=== PATIENT | male | born 1985 | race Caucasian/White ===

== ENCOUNTER 2020-01-15 17:00 | Emergency (ER) | payer BC, SELFPAY ==
[2020-01-15 17:33] VITALS: BP 124/86; PULSE 86; RESP 14; TEMP 36.7; O2SAT 100; BMI 27.8
--- NOTE | 2020-01-15 17:40 | HMH.EDUTC ---
[facility] [place] Clinical Impression: Sore throat Otitis media Qualifiers: Otitis media type: unspecified Laterality: left Qualified Code(s): H66.92 - Otitis media, unspecified, left ear Disposition: Home, Self-Care Condition on Discharge: Good Instructions: Preventing the Spread of Coronavirus Discharge Instructions, Sore Throat Additional Instructions: *Monitor Temp, Over the counter Motrin or Tylenol as directed/as needed Tylenol every 4 hours and Motrin every 6 hours (as long as your family doctor has told you that you can take it) for fever or pain. and straight to ER if unable to lower temp less than 101.0 after medication given *Warm salt water gargles may help to soothe the throat *Throat Lozenges *Warm fluids like tea with honey may help to soothe the throat *Sleep elevated *Humidifier/Vaporizer *Flonase 2 sprays in each nostril daily but be aware that it may take 2-3 days before you notice improvement Your throat swab was sent for culture. Those results are typically sent to your primary care. Be sure to follow up in 2-3 days with your family doctor/primary care physician if no improvement so they can review those result and treat if necessary. If you don?t have a primary care doctor, I recommend you get one but in the mean time, you will have to return to a walk in clinic Follow up IMMEDIATELY for new or worsening symptoms or no Noticeable improvement over the next 48-72 hours. 911 for difficulty breathing or swallowing You was tested for today for COVID19 your test result should be back later this evening, you may call back later this evening to see if your test results are back and the result You was given a handout with instructions for Self Quarantine and Self isolation for while you wait on test results and what to do if they are positive Prescriptions: Fluticasone Propionate [Flonase 50mcg nasal spray 16gm] 1 - 2 spr NS DAILY #1 bottle Transmission Status: Pending to [facility] # Azithromycin [Z-Reg 250mg Tab] 250 mg PO DIRECTED #6 tab Transmission Status: Pending to [facility] # Referrals: Jackie Dacosta [Primary Care Provider] - As needed Forms: Work/School Release Time of Disposition: 17:45 Medical Decision Making - Angelito Inquiry Pt receiving controlled substance: No Angelito was queried for this patient: No Vital Signs: 01/15/20 17:33 Temperature 98.1 F Temperature Source Oral Pulse Rate [Right Brachial] 86 Respiratory Rate 14 Blood Pressure [Right Arm] 124/86 Blood Pressure Mean [Right Arm] 98 Blood Pressure Source [Right Arm] Automatic Cuff Blood Pressure Position [Right Arm] Sitting 02 Sat by Pulse Oximetry 100 Oxygen Delivery Method Room Air - Lab Data Lab results reviewed: Yes: I reviewed the patient's lab results. Orders (Tests/Meds): ORDERS Category Date Time Status Covid-19 Nasal PCR ([facility]) Routine Lab 01/15/20 17:22 Ordered [facility] [place] - General Stated complaint: sore throat,want Covid test Time Seen by Provider: 01/15/20 17:40 Mode of Arrival: Ambulatory Source of Information: Patient Limitations: No Limitations Description of Symptoms (Recalled from Triage Doc. by RN): PATIENT C/O SORE THROAT AND SINUS DRAINAGE. STATES A CO-WORKER RECENTLY TESTED POSITIVE FOR COVID HEENT Symptoms (Recalled from RN notes): Yes Resp Symptoms (Recalled from RN notes): No Skin Symptoms (Recalled from RN notes): No MS Symptoms (Recalled from RN notes): No Functional Status (Recalled from RN notes): WNL - History of Present Illness Provider Complaint: Patient states that he has been having sore throat and sinus drainage but coworker recently tested positive for COVID and mother of coworker babysits his children States that work put him off and wont leg him come back until he gets tested for COVID - Related Data Home Medications Medication Instructions Recorded Confirmed Venlafaxine HCl [Venlafaxine HCl 37.5 mg PO DAILY 01/15/20 10
[2020-01-15 17:58] VITALS: BP 124/86; PULSE 86; RESP 14; TEMP 36.7; O2SAT 100
[2020-01-15 21:17] LABS: UTC Strep Screen (Rapid) Negative (Negative)
== END 2020-01-15 18:00 | disposition home or self-care (01) ==
PROVIDERS: Emergency Provider Nurse Practitioner; PCP Family Medicine
DX: Z20.828 Contact with and (suspected) exposure to other viral communicable diseases (principal); H66.92 Otitis media, unspecified, left ear; Z88.0 Allergy status to penicillin
CPT/HCPCS: 87880; 99202; U0003

== ENCOUNTER 2020-12-09 08:59 | Emergency (ER) | payer BC, SELFPAY ==
[2020-12-09 09:00] VITALS: BP 159/95; PULSE 77; RESP 18; TEMP 36.9; O2SAT 98; BMI 29.4
--- NOTE | 2020-12-09 09:35 | HMH.EDUTC ---
[facility] [place]ression: Viral syndrome, Exposure to COVID-19 virus Disposition: Home, Self-Care Condition on Discharge: Good Instructions: DI for COVID-19 (Suspected or Confirmed ), Preventing the Spread of Coronavirus Discharge Instructions Additional Instructions: Don't start the azithromycin. Give this a couple of days to see how it goes first. Drink plenty of fluids. Take tylenol for pain or fever. Return if you begin to have difficulty breathing. Follow up with your regular doctor. GO TO THE ER FOR ANY WORSENING SYMPTOMS Quarantine until you know the results of your covid-19 test. If it is positive, the health department should call you and give you further instructions about your length of Quarantine and other things. Notify your school or workplace of your results and follow their instructions regarding return to work/school. Prescriptions: Brompheniramine/Pseudoephed/Dm [Bromfed Dm Cough Syrup] 5 ml PO Q6HP PRN #240 ml PRN Reason: Cough Transmission Status: Received by [facility] #[id number] Azithromycin [Z-Reg 250mg Tab*] 250 mg PO UD DOSE PK #6 tab Transmission Status: Received by [facility] #[id number] Referrals: Jackie Dacosta [Primary Care Provider] - Forms: Work/School Release Time of Disposition: 09:38 Medical Decision Making - Medical Records Medical records reviewed: No: I reviewed the patient's medical records. - Angelito Inquiry Pt receiving controlled substance: No Vital Signs: 12/09/20 09:00 12/09/20 09:43 Temperature 98.4 F 98.4 F Temperature Source Oral Pulse Rate 77 Pulse Rate [Right Brachial] 77 Respiratory Rate 18 18 Blood Pressure 159/95 H Blood Pressure [Right Arm] 159/95 H Blood Pressure Mean [Right Arm] 116 Blood Pressure Source [Right Arm] Automatic Cuff Blood Pressure Position [Right Arm] Sitting 02 Sat by Pulse Oximetry 98 Oxygen Delivery Method Room Air [facility] [place] - General Stated complaint: covid test/symptoms Time Seen by Provider: 12/09/20 09:35 Mode of Arrival: Ambulatory Source of Information: Patient Limitations: No Limitations Description of Symptoms (Recalled from Triage Doc. by RN): PATIENT C/O SINUS DRAINAGE AND HEADACHE SINCE SUNDAY NIGHT. REQUESTING COVID TEST HEENT Symptoms (Recalled from RN notes): Yes Resp Symptoms (Recalled from RN notes): No Skin Symptoms (Recalled from RN notes): No MS Symptoms (Recalled from RN notes): No Functional Status (Recalled from RN notes): WNL - History of Present Illness Provider Complaint: He has been having head ache, scratchy sore throat and sinus pressure for the past 2 days. He has been vaccinated for covid, but he would like to be checked. - Related Data Home Medications Medication Instructions Recorded Confirmed Venlafaxine HCl [Venlafaxine HCl 37.5 mg PO DAILY 01/15/20 01/15/20 ER] Previous Rx's Medication Instructions Recorded Azithromycin [Z-Reg 250mg Tab] 250 mg PO DIRECTED #6 tab 01/15/20 Fluticasone Propionate [Flonase 1 - 2 spr NS DAILY #1 bottle 01/15/20 50mcg nasal spray 16gm] Azithromycin [Z-Reg 250mg Tab*] 250 mg PO UD DOSE PK #6 tab 12/09/20 Brompheniramine/Pseudoephed/Dm 5 ml PO Q6HP PRN #240 ml 12/09/20 [Bromfed Dm Cough Syrup] Allergies Allergy/AdvReac Type Severity Reaction Status Date / Time Penicillins Allergy Verified 01/15/20 17:37 - Worker's Comp Is this a Worker's Comp case?: No [facility] History - Hepatitis A Screen Drug use history?: No High risk sexual behaviors?: No History of sexually transmitted infection?: No Currently employed?: No Childcare worker?: No Do you have indoor plumbing?: Yes Do you have electricity?: Yes Attestation statement:: This patient has been screened for Hepatitis A risk factors. I have reviewed the patient's past medical history: Yes Laterality Cases: Bilateral: Myringotomy (Ear Tubes) - Social History Alcohol Intake: never Occupational Status: other ROS O
[2020-12-09 09:43] VITALS: BP 159/95; PULSE 77; RESP 18; TEMP 36.9; O2SAT 98
== END 2020-12-09 09:49 | disposition home or self-care (01) ==
PROVIDERS: Emergency Provider Nurse Practitioner Family; PCP Family Medicine
DX: B34.9 Viral infection, unspecified (principal); Z20.822 Contact with and (suspected) exposure to COVID-19; Z88.0 Allergy status to penicillin
CPT/HCPCS: 99202; G0463; U0003

== ENCOUNTER 2022-01-25 15:38 | Emergency (ER) | payer BC, SELFPAY ==
[2022-01-25 15:39] VITALS: BP 129/89; PULSE 77; RESP 19; TEMP 36.7; O2SAT 99; BMI 24.6
[2022-01-25 16:00] LABS: UTC Strep Screen (Rapid) Negative (Negative)
--- NOTE | 2022-01-25 16:04 | EXP.UTC ---
Discharge Plan Disposition Patient Disposition: Home, Self-Care Condition: Good Prescriptions Prescriptions: New methylprednisolone [Medrol (Reg)] 4 mg tablets,dose pack See Rx Instructions .Route .COMPLEX 6 Days Qty: 21 0RF Rx Instructions: taper pack; cefdinir 300 mg capsule 300 mg PO BID Qty: 20 0RF No Action venlafaxine 37.5 MG capsule,extended release 24hr 37.5 mg PO DAILY azithromycin 250 MG tablet 250 mg PO DIRECTED Qty: 6 0RF Rx Instructions: Take two (2) tablets on day #1, then one (1) tablet day #2 thru #5 fluticasone propionate 120 SPR/BOT bottle 1 - 2 spr NS DAILY Qty: 1 0RF Rx Instructions: each nostril daily azithromycin 250 MG tablet 250 mg PO UD DOSE PK Qty: 6 0RF Rx Instructions: Take two (2) tablets today, then one (1) tablet days #2 thru #5 wauhayhlzggaeki-wjueuexmw-ZL 118 ML syrup 5 ml PO Q6HP PRN (Reason: Cough) Qty: 240 0RF Referrals Follow up/Referrals: Jackie Dacosta [Primary Care Provider] - See instructions Activity Restrictions/Add. Instructions Additional Instructions/Restrictions: *Monitor Temp, Over the counter Motrin or Tylenol as directed/as needed Tylenol every 4 hours and Motrin every 6 hours (as long as your family doctor has told you that you can take it) for fever or pain. and straight to ER if unable to lower temp less than 101.0 after medication given *Warm salt water gargles may help to soothe the throat *Throat Lozenges? *Warm fluids like tea with honey may help to soothe the throat? *Sleep elevated *Humidifier/Vaporizer Your throat swab was sent for culture. Those results are typically sent to your primary care. Be sure to follow up in 2-3 days with your family doctor/primary care physician if no improvement so they can review those result and treat if necessary. If you don?t have a primary care doctor, I recommend you get one but in the mean time, you will have to return to a walk in clinic Follow up IMMEDIATELY for new or worsening symptoms or no Noticeable improvement over the next 48-72 hours. 911 for difficulty breathing or swallowing Clinical Impressions Clinical Impression: URI (upper respiratory infection) Instructions Patient Instructions: Sore Throat Discharge ED Provider: Vesna Tobin [facility] HPI General Stated complaint: sore throat, congestion Mode of Arrival: Ambulatory Limitations: No Limitations Time Seen by Provider: 01/25/22 15:45 Description of Symptoms (Recalled from Triage Doc. by RN): SORE THROAT X 3 DAYS HEENT Symptoms (Recalled from RN notes): Yes Resp Symptoms (Recalled from RN notes): No Skin Symptoms (Recalled from RN notes): No MS Symptoms (Recalled from RN notes): No Functional Status (Recalled from RN notes): NA History of Present Illness Provider Complaint: Patient states that he has been having sore throat for about 3 days States that his son recently tested positive for strep throat and he thinks he may have it now too States that his throat is raw and irritated and can barely talk Related Data Home Medications Medication Instructions Recorded Confirmed venlafaxine 37.5 mg 37.5 mg PO DAILY Anxiety 01/15/20 01/15/20 capsule,extended release 24 hr Previous Rx's Medication Instructions Recorded azithromycin 250 mg tablet 250 mg PO DIRECTED #6 tabs 01/15/20 fluticasone propionate 50 1 - 2 spr NS DAILY ##1 01/15/20 mcg/actuation nasal spray,suspension azithromycin 250 mg tablet 250 mg PO UD DOSE PK #6 tabs 12/09/20 jaeztwefcfofvnb-biohhzyideyepyi-PA 5 ml PO Q6HP PRN Cough #240 mL 12/09/20 2 mg-30 mg-10 mg/5 mL oral syrup cefdinir 300 mg capsule 300 mg PO BID #20 caps 01/25/22 methylprednisolone 4 mg tablets in See Rx Instructions .Route 01/25/22 a dose pack (Medrol (Reg)) .COMPLEX 6 days #21 tabs Allergies Allergy/AdvReac Type Severity Reaction Status Date / Time Penicillins Allergy Verified 01/15/20 17:37 Wor
[2022-01-25 16:18] VITALS: BP 129/89; PULSE 77; RESP 19; TEMP 36.7; O2SAT 99
== END 2022-01-25 16:19 | disposition home or self-care (01) ==
PROVIDERS: Emergency Provider Nurse Practitioner; PCP Family Medicine
DX: J06.9 Acute upper respiratory infection, unspecified (principal)
CPT/HCPCS: 87880; 99212; G0463

== ENCOUNTER 2022-03-09 07:32 | Emergency (ER) | payer BC, SELFPAY ==
[2022-03-09 07:32] VITALS: BP 154/96; PULSE 83; RESP 18; TEMP 36.1; O2SAT 100; BMI 26.5
--- NOTE | 2022-03-09 07:39 | CT_ITS ---
FINAL REPORT TECHNIQUE: Axial images through the abdomen and pelvis were performed without contrast. This study was performed with techniques to keep radiation doses as low as reasonably achievable, (ALARA). Individualized dose reduction techniques using automated exposure control or adjustment of mA and/or kV according to the patient's size were employed. CLINICAL HISTORY: RLQ/Rt flank pain x 2 hours. Oliguria, nausea and vomiting. FINDINGS: Abdomen: The lung bases are clear. The liver parenchyma is homogeneous. The gallbladder is present. The spleen, pancreas, and adrenals are unremarkable. There are tiny nonobstructing stones in the right renal collecting system. There is moderate left hydronephrosis and hydroureter to the level of the UVJ. There is a 3 mm left UVJ stone. Pelvis: The urinary bladder is incompletely distended. The appendix is normal. There is no pelvic mass or inflammation. IMPRESSION: Obstructing 3 mm left UVJ stone. Nonobstructing right renal stones. Reviewed, Interpreted and Dictated by Phoenix Duncan MD Transcribed by Moshe Colin Authenticated and [facility]
[2022-03-09 07:49] LABS: Basophils # 0.1 K/mm3 (0-0.2); Basophils % 1.7 % (0.1-2.0); Eosinophils # 0.1 K/mm3 (0.0-0.4); Eosinophils % 1.9 % (0.1-12.0); Hematocrit 51.6 % (42.0-52.0); Hemoglobin 16.9 g/dL (14.1-18.0); Lymphocytes # 2.1 K/mm3 (0.7-4.5); Lymphocytes % 31.8 % (10-50); Mean Corpuscular HGB Conc 32.7 g/dL (31.8-35.4); Mean Corpuscular Hemoglobin 30.5 pg (27.0-31.2); Mean Platelet Volume 8.8 fl (7.4-10.4); Monocytes # 0.4 K/mm3 (0.1-1.0); Monocytes % 5.8 % (1.7-9.3); Neutrophils # 3.9 K/mm3 (1.8-7.8); Neutrophils % 58.9 % (37.0-80.0); Platelet Count 254 K/mm3 (142-424); Red Blood Count 5.55 M/mm3 (4.60-6.20); Red Cell Distribution Width 12.4 % (11.5-17.5); White Blood Count 6.6 K/mm3 (4.8-10.8)
[2022-03-09 08:00] LABS: Chloride 108 mmol/L (98-107); Potassium 3.8 mmoL/L (3.5-5.1); Sodium 142 mmol/L (136-145)
--- NOTE | 2022-03-09 08:00 | PC.NURSE ---
radiology notified of ct scan, pt updated on plan of care. at bedside. reports minimal relief from prior medication
[2022-03-09 08:03] LABS: Alanine Aminotransferase 19 U/L (12-78); Albumin Level 4.9 g/dl (3.5-5.0); Albumin/Globulin Ratio 1.6 (1.1-1.8); Alkaline Phosphatase 114 U/L (38-126); Anion Gap 14.8 mEq/L (5-15); Aspartate Amino Transferase 27 U/L (17-59); Bilirubin,Total 0.4 mg/dl (0.2-1.3); Blood Urea Nitrogen 13 mg/dl (9-20); Carbon Dioxide 23 mmol/L (22.0-30.0); Creatinine Clearance Estimated 91 mL/min (50-200); Estimated Glomerular Filt Rate 62 ml/min (>60); GFR (African American) 75 ML/MIN (>60); Globulin 3.1 g/dL (1.3-3.2)
[2022-03-09 08:04] LABS: Calcium 10.1 mg/dl (8.4-10.2); Glucose 118 mg/dl (74-100)
--- NOTE | 2022-03-09 08:05 | HMH.EDGENADL ---
Discharge Plan Disposition Patient Disposition: Home, Self-Care Condition: Good Chief Complaint: Abdominal Pain Prescriptions Prescriptions: No Action venlafaxine 37.5 MG capsule,extended release 24hr 37.5 mg PO DAILY azithromycin 250 MG tablet 250 mg PO DIRECTED Qty: 6 0RF Rx Instructions: Take two (2) tablets on day #1, then one (1) tablet day #2 thru #5 fluticasone propionate 120 SPR/BOT bottle 1 - 2 spr NS DAILY Qty: 1 0RF Rx Instructions: each nostril daily azithromycin 250 MG tablet 250 mg PO UD DOSE PK Qty: 6 0RF Rx Instructions: Take two (2) tablets today, then one (1) tablet days #2 thru #5 ituzprmdoucddwm-xnnxpvprw-HU 118 ML syrup 5 ml PO Q6HP PRN (Reason: Cough) Qty: 240 0RF methylprednisolone [Medrol (Reg)] 4 mg tablets,dose pack See Rx Instructions .Route .COMPLEX 6 Days Qty: 21 0RF Rx Instructions: taper pack; cefdinir 300 mg capsule 300 mg PO BID Qty: 20 0RF Referrals Follow up/Referrals: Jackie Dacosta [Primary Care Provider] - See instructions Thierry Lozano MD [Staff Physician] - See instructions Clinical Impressions Clinical Impression: Kidney stone Instructions Patient Instructions: DI for Kidney Stones, Kidney Stones -- Adult Discharge ED Provider: Carlos Khan General Adult HPI General Chief complaint: Abdominal Pain Stated complaint: Possible kidney stone, lower back/groin pain Time Seen by Provider: 03/09/22 08:04 Mode of Arrival: Ambulatory Source of Information: Patient Limitations: No Limitations Description of Symptoms (Recalled from ER Triage Doc. by RN): PT REPORTS WOKE UP IN PAIN. LEFT FLANK THAT RADIATES TO GROIN History of Present Illness HPI narrative: 36-year-old male, denies any significant chronic medical issues, presents with pain in the left flank now radiating into the groin area, started approximately 6 AM this morning sudden onset and severe in nature, had been waxing and waning and became more constant. Also reported some mild associated dysuria, denies any hematuria or odor noted. Did report associated nausea, denies fever, no prior abdominal surgical history. Denies any prior history of kidney stones, denies any testicular swelling or pain. Does not take any treatments thus far prior to this visit. Related Data Home Medications Medication Instructions Recorded Confirmed venlafaxine 37.5 mg 37.5 mg PO DAILY Anxiety 01/15/20 01/15/20 capsule,extended release 24 hr Previous Rx's Medication Instructions Recorded azithromycin 250 mg tablet 250 mg PO DIRECTED #6 tabs 01/15/20 fluticasone propionate 50 1 - 2 spr NS DAILY ##1 01/15/20 mcg/actuation nasal spray,suspension azithromycin 250 mg tablet 250 mg PO UD DOSE PK #6 tabs 12/09/20 wdvoowasprlndin-bksrsjphpuoqhkg-RI 5 ml PO Q6HP PRN Cough #240 mL 12/09/20 2 mg-30 mg-10 mg/5 mL oral syrup cefdinir 300 mg capsule 300 mg PO BID #20 caps 01/25/22 methylprednisolone 4 mg tablets in See Rx Instructions .Route 01/25/22 a dose pack (Medrol (Reg)) .COMPLEX 6 days #21 tabs Allergies Allergy/AdvReac Type Severity Reaction Status Date / Time Penicillins Allergy Verified 01/15/20 17:37 [facility] Disclaimer: The information contained in this section may have been updated after the patient was seen, as this information can be updated by other users. Social History Smoking Status: Never smoker alcohol intake: never current occupational status: other Travel in the last 8 weeks: None ROS Obtained: Yes Systems reviewed as appropriate & no additional complaints except as documented Constitutional Constitutional: Reports system reviewed and no additional complaints, except as documented Eyes Eyes: Reports system reviewed and no additional complaints, except as documented ENT Ears, Nose, Mouth, and Throat: Reports system reviewed and no additional complaints, except as
--- NOTE | 2022-03-09 08:07 | PC.NURSE ---
AT NURSES STATION REPORTS PT MORE COMFORTABLE AT THIS TIME
--- NOTE | 2022-03-09 08:08 | PC.NURSE ---
PT TO CT AT THIS TIME VIA WC
--- NOTE | 2022-03-09 08:15 | PC.NURSE ---
PT RETURNED FROM CT, JACOB MOSLEY
--- NOTE | 2022-03-09 08:18 | PC.NURSE ---
DR. ROACH AT BEDSIDE
--- NOTE | 2022-03-09 08:47 | PC.NURSE ---
PT TO BR TO ATTEMPT TO VOID FOR UA
--- NOTE | 2022-03-09 08:56 | PC.NURSE ---
STONE NOTED BY PT WITH UA, SENT TO LAB WELL
[2022-03-09 09:00] LABS: Microscopic, Urine URINE MICROSCOPIC (MICROSCOPIC)
[2022-03-09 09:03] LABS: Appearance,Urine SL CLOUDY (Clear); Bilirubin,Urine Negative (Negative); Blood, Urine 3+ (Negative); Color,Urine YELLOW (Yellow); Glucose,Urine (UA) Negative (Negative); Ketones,Urine Negative (Negative); Leukocyte Esterase,Urine Negative (Negative); Nitrate,Urine Negative (Negative); PH,Urine 7.5 (5.0-8.5); Protein,Urine 1+ (Negative); Specific Gravity, Urine 1.025 (1.005-1.030); Urobilinogen,Urine 0.2 EU/dl (0.2)
[2022-03-09 09:10] VITALS: BP 127/84; PULSE 80; RESP 17; TEMP 36.6; O2SAT 99
[2022-03-09 09:15] LABS: WBC,Urine Occasional #/hpf (0-3)
[2022-03-09 09:16] LABS: RBC,Urine 20-50 #/hpf (0-3)
== END 2022-03-09 09:15 | disposition home or self-care (01) ==
PROVIDERS: Emergency Medicine; Emergency Provider Emergency Medicine; PCP Family Medicine
DX: N20.0 Calculus of kidney (principal); Z79.899 Other long term (current) drug therapy; Z88.0 Allergy status to penicillin
CPT/HCPCS: 74176; 80053; 81001; 85025; 96365; 96375; 99284; J2405

== ENCOUNTER → 2022-05-19 10:05 | Outpatient (CLI) | payer BC, SELFPAY ==
[2022-05-19 10:20] LABS: MANUAL DIFFERENTIAL MANUAL DIFFERENTIAL (MANUAL DIFF); Microscopic, Urine URINE MICROSCOPIC (MICROSCOPIC)
[2022-05-19 11:34] LABS: Basophils % 0.4 % (0.1-2.0); Eosinophils # 0.1 K/mm3 (0.0-0.4); Eosinophils % 0.9 % (0.1-12.0); Hematocrit 48.3 % (42.0-52.0); Hemoglobin 16.6 g/dL (14.1-18.0); Lymphocytes # 1.4 K/mm3 (0.7-4.5); Lymphocytes % 24.2 % (10-50); Mean Corpuscular HGB Conc 34.4 g/dL (31.8-35.4); Mean Corpuscular Hemoglobin 30.7 pg (27.0-31.2); Mean Corpuscular Volume 89.3 fl (80-94); Mean Platelet Volume 7.7 fl (7.4-10.4); Monocytes # 0.4 K/mm3 (0.1-1.0); Monocytes % 7.2 % (1.7-9.3); Neutrophils % 67.2 % (37.0-80.0); Platelet Count 183 K/mm3 (142-424); Red Blood Count 5.41 M/mm3 (4.60-6.20); Red Cell Distribution Width 12.7 % (11.5-17.5); White Blood Count 5.9 K/mm3 (4.8-10.8)
[2022-05-19 11:35] LABS: Appearance,Urine CLEAR (Clear); Bilirubin,Urine Negative (Negative); Blood, Urine Negative (Negative); Color,Urine YELLOW (Yellow); Glucose,Urine (UA) Negative (Negative); Ketones,Urine Negative (Negative); Leukocyte Esterase,Urine Negative (Negative); Nitrate,Urine Negative (Negative); PH,Urine 6.5 (5.0-8.5); Protein,Urine Negative (Negative); Specific Gravity, Urine 1.025 (1.005-1.030); Urobilinogen,Urine 0.2 EU/dl (0.2)
--- NOTE | 2022-05-19 11:40 | CT_ITS ---
FINAL REPORT TECHNIQUE: TECHNIQUE: Axial images of the head were obtained with contrast. Coronal reformatted images were also obtained.This study was performed with techniques to keep radiation doses as low as reasonably achievable (ALARA). Individualized dose reduction techniques using automated exposure control or adjustment of mA and/or kV according to the patient's size were employed. CLINICAL HISTORY: dizziness, headache, bilateral tinnitus FINDINGS: CT HEAD WITHOUT CONTRAST There is no evidence of intracranial hemorrhage or mass. The ventricular size is within normal limits. There is no evidence of shift of the midline structures. No abnormal extra axial fluid collection is identified. No skull abnormality is seen on the bone window images. There is no abnormal contrast enhancement. IMPRESSION: No acute intracranial abnormality. Reviewed, Interpreted and Dictated by Phoenix Duncan MD Transcribed by Haritha Herbert Authenticated and [facility]
[2022-05-19 11:50] LABS: Bacteria,Urine Trace /lpf
[2022-05-19 12:15] LABS: Eosinophils % 1 % (0-3); Lymphocytes % 27 % (10-50); Monocytes % 4 % (2-9); Neutrophils % 68 % (42-76); Platelet Estimate Normal; RBC Morphology Normal; Total Cells Counted 100
[2022-05-19 12:23] LABS: Alanine Aminotransferase 14 U/L (12-78); Albumin Level 4.9 g/dl (3.5-5.0); Albumin/Globulin Ratio 1.8 (1.1-1.8); Alkaline Phosphatase 81 U/L (38-126); Aspartate Amino Transferase 23 U/L (17-59); Bilirubin,Total 0.6 mg/dl (0.2-1.3); Blood Urea Nitrogen 13 mg/dl (9-20); Calcium 9.5 mg/dl (8.4-10.2); Carbon Dioxide 28 mmol/L (22.0-30.0); Chloride 106 mmol/L (98-107); Chol/HDL Ratio 4.2 (1-3.5); Cholesterol 201 mg/dl (140-200); Estimated Glomerular Filt Rate 68 ml/min (>60); GFR (African American) 82 ML/MIN (>60); Globulin 2.8 g/dL (1.3-3.2); Glucose 83 mg/dl (74-100); HDL Cholesterol 48 mg/dl (40-60); Sodium 142 mmol/L (136-145); Total Protein,Serum 7.7 g/dl (6.3-8.2); Triglycerides 114 mg/dl (30-150); VLDL Cholesterol 23 mg/dL (0-40)
[2022-05-19 12:31] LABS: Anion Gap 12.1 mEq/L (5-15); Potassium 4.1 mmoL/L (3.5-5.1)
[2022-05-19 12:35] LABS: Direct LDL Cholesterol 122.01 mg/dL (100-129); Total Iron Binding Capacity 363 ug/dL (261-462)
[2022-05-19 12:54] LABS: Thyroid Stimulating Hormone 1.29 uIU/mL (0.465-4.68)
[2022-05-19 13:30] LABS: Vitamin B12 490 pg/mL (239-931)
[2022-05-19 13:33] LABS: Folate 5.63 ng/mL
[2022-05-19 17:41] LABS: Iron 100 ug/dL (49-181)
[2022-05-23 23:08] LABS: Antinuclear Antibodies (ANA) NEGATIVE
[2022-05-30 10:31] LABS: 1,25 Dihydroxy Vitamin D 48 pg/mL (.); 1,25-Dihydroxy, Vitamin D-2 <10 pg/mL (.); 1,25-Dihydroxy, Vitamin D-3 48 pg/mL (.)
== END ==
PROVIDERS: PCP Family Medicine; Visit Provider Family Medicine
DX: R42 Dizziness and giddiness (principal); R51.9 Headache, unspecified; I10 Essential (primary) hypertension; F41.9 Anxiety disorder, unspecified; H93.13 Tinnitus, bilateral; R53.83 Other fatigue
CPT/HCPCS: 36415; 70460; 80053; 80061; 81001; 82607; 82652; 82746; 83540; 83550; 84443; 85007; 85014; 85018; 85048; 85049; 86038; Q9967

== ENCOUNTER → 2022-06-08 16:49 | Outpatient (CLI) | payer BC, SELFPAY | PROVIDERS: PCP Family Medicine; Visit Provider Family Medicine | DX: G47.30 Sleep apnea, unspecified (principal); R06.83 Snoring; R42 Dizziness and giddiness; R53.83 Other fatigue | CPT/HCPCS: G0399 ==

== ENCOUNTER → 2022-09-25 14:35 | Outpatient (CLI) | payer BC, SELFPAY ==
[2022-10-04 00:07] LABS: Lyme B. burgdorferi PCR Blood Negative (Negative)
== END ==
PROVIDERS: PCP Nurse Practitioner Family; Visit Provider Nurse Practitioner Family
DX: I10 Essential (primary) hypertension (principal); H93.13 Tinnitus, bilateral; F41.8 Other specified anxiety disorders; W57.XXXA Bitten or stung by nonvenomous insect and other nonvenomous arthropods, initial encounter; Z86.19 Personal history of other infectious and parasitic diseases
CPT/HCPCS: 87476

== ENCOUNTER → 2023-01-01 15:04 | Outpatient (CLI) | payer BC, SELFPAY | PROVIDERS: PCP Nurse Practitioner Family; Visit Provider Internal Medicine | DX: I10 Essential (primary) hypertension (principal); R00.0 Tachycardia, unspecified; R42 Dizziness and giddiness; R53.1 Weakness; R53.83 Other fatigue; R60.0 Localized edema; Z87.891 Personal history of nicotine dependence | CPT/HCPCS: 93270 ==

== ENCOUNTER → 2023-01-04 07:54 | Outpatient (CLI) | payer BC, SELFPAY ==
[2023-01-04 08:13] LABS: Basophils % 0.6 % (0.1-2.0); Eosinophils # 0.1 K/mm3 (0.0-0.4); Eosinophils % 1.8 % (0.1-12.0); Hematocrit 49.9 % (42.0-52.0); Hemoglobin 16.9 g/dL (14.1-18.0); Lymphocytes % 28.3 % (10-50); Mean Corpuscular HGB Conc 33.9 g/dL (31.8-35.4); Mean Corpuscular Hemoglobin 29.5 pg (27.0-31.2); Mean Corpuscular Volume 86.9 fl (80-94); Mean Platelet Volume 8.6 fl (7.4-10.4); Monocytes # 0.5 K/mm3 (0.1-1.0); Neutrophils # 4.4 K/mm3 (1.8-7.8); Neutrophils % 62.3 % (37.0-80.0); Platelet Count 243 K/mm3 (142-424); Red Blood Count 5.74 M/mm3 (4.60-6.20); Red Cell Distribution Width 12.3 % (11.5-17.5)
[2023-01-04 09:03] LABS: Chloride 102 mmol/L (98-107); Sodium 141 mmol/L (136-145)
[2023-01-04 09:04] LABS: Potassium 4.1 mmoL/L (3.5-5.1)
[2023-01-04 09:06] LABS: Anion Gap 12.1 mEq/L (5-15); Blood Urea Nitrogen 16 mg/dl (9-20); Carbon Dioxide 31 mmol/L (22.0-30.0); Estimated Glomerular Filt Rate 56 ml/min (>60); GFR (African American) 68 ML/MIN (>60)
[2023-01-04 09:07] LABS: Calcium 9.7 mg/dl (8.4-10.2); Glucose 109 mg/dl (74-100)
[2023-01-04 09:26] LABS: Free T4 (Free Thyroxine) 1.22 ng/dl (0.78-2.19)
[2023-01-04 09:37] LABS: Thyroid Stimulating Hormone 1.36 uIU/mL (0.465-4.68)
[2023-01-05 11:46] LABS: Sodium, Urine 126 mmol/L (Not Estab.); Sodium, Urine 88 mmol/24 hr (58-337)
[2023-01-11 05:12] LABS: Metanephrine, U,24hr 70 ug/24 hr (58-276); Metanephrine, Ur 100 ug/L (Undefined); Normetanephr.,U,24h 193 ug/24 hr (156-729); Normetanephrine, Ur 275 ug/L (Undefined)
== END ==
PROVIDERS: PCP Nurse Practitioner Family; Visit Provider Internal Medicine
DX: R00.0 Tachycardia, unspecified (principal); R42 Dizziness and giddiness; I10 Essential (primary) hypertension; R53.1 Weakness; R53.83 Other fatigue; R60.0 Localized edema; Z87.891 Personal history of nicotine dependence
CPT/HCPCS: 36415; 80048; 82088; 82533; 83520; 83835; 84244; 84300; 84439; 84443; 85025

== ENCOUNTER → 2023-01-06 08:41 | Outpatient (CLI) | payer BC, SELFPAY ==
[2023-01-17 17:09] LABS: Dopamine, Ur, 24hr 161 ug/24 hr (0-510); Dopamine, Urine 63 ug/L (Undefined); Epinephrine, U, 24hr 8 ug/24 hr (0-20); Epinephrine, Urine 3 ug/L (Undefined); Norepinephrine, Ur 21 ug/L (Undefined); Norepinephrine,U,24h 54 ug/24 hr (0-135); VMA, Urine 1.5 mg/L (Undefined); VMA, Urine, 24hr 3.8 mg/24 hr (0.0-7.5)
== END ==
PROVIDERS: PCP Nurse Practitioner Family; Visit Provider Internal Medicine
DX: I10 Essential (primary) hypertension (principal); R00.0 Tachycardia, unspecified; R42 Dizziness and giddiness; R53.1 Weakness; R53.83 Other fatigue; R60.0 Localized edema; Z87.891 Personal history of nicotine dependence
CPT/HCPCS: 82384; 84585

== ENCOUNTER 2023-01-17 07:29 | Outpatient (CLI) | payer BC, SELFPAY ==
--- NOTE | 2023-01-17 07:30 | CT_ITS ---
APPROVED REPORT Transmission Tester: CLINICAL INDICATION Chest Pain TECHNIQUE Image Acquisition: A 128 slice MDCT scanner ([employer] View) was used for data acquisition. A noncontrast coronary calcium scan was performed. A CT attenuation threshold of 130 Hounsfield units (HU) was used for the detection of calcium in contiguous voxels of 1 sq mm in area to be counted as individual lesions. Bolus tracking in the ascending aorta with a threshold of 180 HU was performed. Immediately afterwards, ECG synchronized cardiac CT was then performed from the cardiac base to apex using retrospective gating with ECG tube current modulation. A total of 85 mL of Isovue 370 mg/mL contrast medium was administered at 5 mL/sec followed by a saline flush using a biphasic injection protocol. A tube voltage of 120 KVp was used. The patient received the following medications prior to the cardiac CT. 100 mg of oral metoprolol 5 mg of intravenous metoprolol. 0.8 mg of sublingual nitroglycerin. The average heart rate at the time of acquisition was 56 bpm and regular. Image Reconstruction Transaxial images were reconstructed at 0.67 mm slide thickness. Data was reviewed interactively on an advanced workstation capable of 2 and 3-dimensional displays in all conventional reconstruction formats, including multiplanar reformations, maximum intensity projections, curved multiplanar reformations, and volume rendered reconstructions. When applicable, selected routine images describing the relevant coronary anatomy and pathology were saved and sent to PACS. Complications None Technical Quality Overall image quality was good. Coronary artery opacification was adequate. Total DLP (Dose-Length Product) is 1668.1 mGy-cm. The reported value represents the total of one or more individual components during the CT acquisition of this date and at this time, and as such, the same value may appear in more than one CT report depending on the interpreting/reporting physicians. COMPARISON None FINDINGS CT Coronary Calcium Scoring LMA (Left Main Artery) = 0 LAD (Left Anterior Descending) = 5 LCX (Left Coronary Circumflex) = 0 RCA (Right Coronary Artery) = 0 Total Calcium Score = 5 using the AJ-130 method. The observed calcium score of 5 is < 25 percentile for subjects of the same age, sex, and race/ethnicity. The interpretation of the calcium heart score is based on the following continuum*: 0 = no calcified plaque detected (risk of coronary artery disease is very low ??? less than 5%) 1-10 = calcium detected in extremely minimal levels (risk of coronary diseases is still low ??? less than 10%) 11-100 = mild levels of plaque detected with certainty (mild or minimal narrowing of heart arteries is likely) 101-400 = definite,at least moderate levels of plaque detected (relatively high risk of a heart attack within 3-5 years) >401-999 = extensive levels of plaque detected (high risk of heart attack, high levels of vascular disease are present, high likelihood of at least one significant coronary narrowing) *The calcium heart score quantifies the burden of coronary calcification/plaque in the coronary arteries. The calcium heart score is not able to evaluate the presence or burden of non-calcified (i.e. soft) plaque. There is no identifiable calcification in the aortic valve, mitral annulus or mitral valve, pericardium, or myocardium. Coronary CT Angiography Coronaries have normal origin and proximal course. The coronary arterial system is right dominant. Note: Stenosis is reported as maximum percentage diameter stenosis. Stenosis grading is reported using the following scheme: Quantitative Stenosis Grading: Left Main (LM): The left main originates normally from the l
[2023-01-17 07:57] VITALS: BMI 25.7
[2023-01-17 08:40] VITALS: BP 116/82; PULSE 58; RESP 18; O2SAT 98
[2023-01-17 08:50] VITALS: BP 106/63; PULSE 70; RESP 18; O2SAT 98
[2023-01-17 08:58] VITALS: BP 103/49; PULSE 56; RESP 18; O2SAT 96
[2023-01-17 09:03] VITALS: BP 106/84; PULSE 68; RESP 17; TEMP 36.6; O2SAT 97
--- NOTE | 2023-01-17 09:05 | CA_ITS ---
APPROVED REPORT EXAM: Comprehensive 2D, Doppler, and color-flow Echocardiogram Exterior Interior Specialist: Franny Renae RT(R) Ht: 5 ft 10 in Wt: 181lbs BSA: 2.00 BP: 150/99 mmHg Indications: tachycardia, HTN, fatigue, edema, HTN, fatigue, weakness/fatigue, tick bite, pedal edema 2D Dimensions LVOT 2.07 cm (M/F) 1.5-2.5 LVEF (Us's) 54.20 % M: 52 - 72 LV Volume 100.10 mL M: 62 - 150 LV Volume Index 50.05 mL/m2 M: 34 - 74 LA Volume 34.50 mL LA Volume Index 17.25 mL/m2 (M/F) 16-34 M-Mode Dimensions RVDd 2.72 cm (0.9-2.6) LA Diam 3.48 cm (1.9-4.0) LVDd 4.61 cm (3.5-5.7) Ao Diam 3.12 cm (2.0-3.7) LVDs 3.40 cm (3.5-5.7) IVSd 1.25 cm (0.6-1.1) PWd 0.79 cm (0.6-1.1) EF (Teich) 51.50% FS 26.20% EDV (Teich) 97.80 mL ESV (Teich) 47.40 mL LV Diastology E Decel Time 263.00 (160-240 msec) E/A Ratio 1.46 MED E' 7.30 (< 7 cm/sec) E'/MED E' Ratio 9.11 (>14) LAT E' 9.20 (<10 cm/sec) E/LAT E' Ratio 7.23 (>14) Mitral Valve MV A Velocity 46.00 (40-130 cm/s) E/A Ratio 1.46 MV Decel. Time 263.00 (160-240 ms) Tricuspid Valve TR P. Velocity 153.00 cm/s RAP Estimate 10.00 mmHg RVSP 19.40 mmHg Left Ventricle The left ventricle is normal size. The left ventricular systolic function is normal. The left ventricular ejection fraction is within the normal range. There is increased LV wall thickness. There is normal LV segmental wall motion. The left ventricular diastolic function is normal. LVEF is 60%. Right Ventricle The right ventricle is normal size. The right ventricular systolic function is normal. Atria The left atrium size is normal. The right atrium size is normal. There is no Doppler evidence of interatrial shunt. Aortic Valve The aortic valve is trileaflet. The aortic valve opens well. There is no aortic valvular stenosis. No aortic regurgitation is present. Mitral Valve The mitral valve is normal in structure. No evidence of mitral valve stenosis. Trace mitral regurgitation. Tricuspid Valve The tricuspid valve leaflets are thin and pliable. Trace tricuspid regurgitation. RVSP is normal. Pulmonic Valve The pulmonary valve is normal in structure. Trace pulmonic regurgitation. Great Vessels The aortic root is normal in size. The ascending aorta is normal in size. IVC is normal in size and collapses >50% with inspiration. Pericardium There is no pericardial effusion. Other Information Study Quality: Adequate Conclusion Normal biventricular systolic function. No significant valvular stenosis or regurgitation. Electronically signed by : Alessandra Gale MD 01/19/2023 23:17:59
[2023-01-17 09:16] VITALS: BP 108/64; BP 119/81; PULSE 55; PULSE 61; RESP 16; TEMP 36.6; O2SAT 98
== END 2023-01-17 09:16 | disposition home or self-care (01) ==
PROVIDERS: PCP Nurse Practitioner Family; Visit Provider Internal Medicine
DX: R42 Dizziness and giddiness (principal); I10 Essential (primary) hypertension; R00.0 Tachycardia, unspecified; R53.1 Weakness; R53.83 Other fatigue; R60.0 Localized edema; Z87.891 Personal history of nicotine dependence
CPT/HCPCS: 75574; 93306; Q9967

== ENCOUNTER → 2023-02-28 13:16 | Outpatient (CLI) | payer BC, SELFPAY ==
[2023-02-28 14:06] LABS: Alanine Aminotransferase 15 U/L (12-78); Albumin Level 4.7 g/dl (3.5-5.0); Albumin/Globulin Ratio 1.6 (1.1-1.8); Alkaline Phosphatase 103 U/L (38-126); Anion Gap 12.7 mEq/L (5-15); Aspartate Amino Transferase 25 U/L (17-59); Bilirubin,Total 0.6 mg/dl (0.2-1.3); Blood Urea Nitrogen 12 mg/dl (9-20); Calcium 9.2 mg/dl (8.4-10.2); Carbon Dioxide 27 mmol/L (22.0-30.0); Chloride 102 mmol/L (98-107); Estimated Glomerular Filt Rate 61 ml/min (>60); GFR (African American) 74 ML/MIN (>60); Globulin 2.9 g/dL (1.3-3.2); Glucose 98 mg/dl (74-100); Potassium 3.7 mmoL/L (3.5-5.1); Sodium 138 mmol/L (136-145); Total Protein,Serum 7.6 g/dl (6.3-8.2)
[2023-03-01 08:17] LABS: Testosterone,Total 604 ng/dL (264-916)
== END ==
PROVIDERS: PCP Nurse Practitioner Family; Visit Provider Nurse Practitioner Family
DX: F41.1 Generalized anxiety disorder (principal); F41.8 Other specified anxiety disorders; R41.89 Other symptoms and signs involving cognitive functions and awareness; R42 Dizziness and giddiness; R53.83 Other fatigue; N17.9 Acute kidney failure, unspecified
CPT/HCPCS: 80053; 82306; 84403

== ENCOUNTER 2023-06-22 07:08 | Outpatient (CLI) | payer BC, SELFPAY ==
[2023-06-22 07:54] LABS: Basophils % 0.7 % (0.1-2.0); Eosinophils # 0.1 K/mm3 (0.0-0.4); Eosinophils % 1.9 % (0.1-12.0); Hematocrit 47.6 % (42.0-52.0); Lymphocytes # 1.7 K/mm3 (0.7-4.5); Lymphocytes % 27.8 % (10-50); Mean Corpuscular HGB Conc 33.7 g/dL (31.8-35.4); Mean Corpuscular Hemoglobin 31.2 pg (27.0-31.2); Mean Corpuscular Volume 92.7 fl (80-94); Mean Platelet Volume 8.3 fl (7.4-10.4); Monocytes # 0.5 K/mm3 (0.1-1.0); Neutrophils # 3.7 K/mm3 (1.8-7.8); Neutrophils % 60.6 % (37.0-80.0); Platelet Count 179 K/mm3 (142-424); Red Blood Count 5.14 M/mm3 (4.60-6.20)
[2023-06-22 08:11] LABS: Alanine Aminotransferase 19 U/L (12-78); Albumin Level 4.4 g/dl (3.5-5.0); Albumin/Globulin Ratio 1.8 (1.1-1.8); Alkaline Phosphatase 97 U/L (38-126); Anion Gap 12.7 mEq/L (5-15); Aspartate Amino Transferase 28 U/L (17-59); Bilirubin,Total 0.6 mg/dl (0.2-1.3); Blood Urea Nitrogen 15 mg/dl (9-20); Calcium 9.4 mg/dl (8.4-10.2); Carbon Dioxide 25 mmol/L (22.0-30.0); Chloride 106 mmol/L (98-107); Estimated Glomerular Filt Rate 67 ml/min (>60); GFR (African American) 82 ML/MIN (>60); Globulin 2.5 g/dL (1.3-3.2); Glucose 108 mg/dl (74-100); Potassium 3.7 mmoL/L (3.5-5.1); Sodium 140 mmol/L (136-145); Total Protein,Serum 6.9 g/dl (6.3-8.2)
[2023-06-22 08:40] LABS: Thyroid Stimulating Hormone 1.81 uIU/mL (0.465-4.68)
[2023-06-22 09:16] LABS: Vitamin B12 424 pg/mL (239-931)
[2023-06-22 09:23] LABS: Folate 4.82 ng/mL
[2023-06-29 14:59] LABS: Narcolepsy DQA1*01:02 Negative (.); Narcolepsy DQB1*06:02 Negative (.)
== END 2023-06-22 23:59 ==
LOC: LAB 07:09
PROVIDERS: PCP Nurse Practitioner Family; Visit Provider Specialist
DX: R41.89 Other symptoms and signs involving cognitive functions and awareness (principal); I10 Essential (primary) hypertension; R53.83 Other fatigue; G47.429 Narcolepsy in conditions classified elsewhere without cataplexy; G47.10 Hypersomnia, unspecified; G47.30 Sleep apnea, unspecified; R06.83 Snoring
CPT/HCPCS: 36415; 80053; 81383; 82607; 82746; 84443; 85025

== ENCOUNTER 2023-08-23 16:12 | Outpatient (CLI) | payer BC, SELFPAY | END 2023-08-23 23:59 | disposition home or self-care (01) | LOC: LAB 16:13 | PROVIDERS: PCP Nurse Practitioner Family; Visit Provider Specialist | DX: F41.1 Generalized anxiety disorder (principal); F41.8 Other specified anxiety disorders; Z51.81 Encounter for therapeutic drug level monitoring | CPT/HCPCS: 36415; 80168 ==

== ENCOUNTER 2023-08-29 08:19 | Day surgery (SDC) | payer BC, SELFPAY ==
[2023-08-29 08:46] VITALS: BP 140/87; PULSE 84; RESP 18; TEMP 36.7; O2SAT 99; BMI 25.5
--- NOTE | 2023-08-29 10:44 | EXP.TILT ---
Findings:: PROCEDURE: Tilt Table Test REQUESTING PROVIDER: Magalys Richards MD INDICATION: Prolonged history of dizziness, brain fog, fatigue. BETA BLOCKERS: None PRE-TEST VITAL SIGNS (supine): HR 67 bpm and sinus rhythm, BP 129/76, O2 Sats 100%. PROCEDURE SUMMARY: Patient was prepped per protocol, IV started, connected to heart, blood pressure and oxygen saturation monitors and safety straps applied. He was then tilted upright to 70 degrees for a total of 30 minutes. Within 5 minutes of being placed upright he complained of his legs feeling shaky, which persisted for most of the test. He also complained of increased dizziness (compared to baseline) after being placed upright and this also persisted for the duration of the test. His heart rate increased from 67 bpm supine to 101 bpm upon being raised to the upright position. It continued to increase as he remained upright, peaking at 133 bpm after 25 minutes. His heart rate quickly slowed to 77 bpm after being returned to the supine position after test completion. He remained in sinus rhythm throughout the test. His diastolic blood pressure increased to 94 mmHg after being raised upright (from 76 mmHg supine) while his systolic stayed relatively unchanged at 123 mmHg (compared to 129 mmHg supine). While upright, his highest systolic pressure was 141 mmHg and lowest was 123. His highest diastolic pressure was 98 and lowest was 88. His oxygen saturation was 99-100% throughout. CONCLUSIONS: Heart rate increased 66 bpm from the supine to the upright position and was accompanied by symptoms. This far surpasses the minimum criteria (30 bpm) for a diagnosis of postural orthostatic tachycardia syndrome (POTS). A trial of beta-blockers or ivabradine would be warranted.
== END 2023-08-29 10:20 | disposition home or self-care (01) ==
PROVIDERS: PCP Nurse Practitioner Family; Visit Provider Specialist
DX: R42 Dizziness and giddiness (principal)

== ENCOUNTER 2023-12-27 15:00 | Outpatient (RCR) | payer BC, SELFPAY ==
--- NOTE | 2023-12-12 16:32 | HMH.PTOPEV ---
PT Outpatient Evaluation Rehab PT Outpatient Evaluation Start: 12/12/23 15:07 Freq: Status: Active Protocol: Document 12/12/23 16:05 PHORNE (Rec: 12/12/23 16:32 PHORNE [id number]) E-signed By Cheng Ross, PT Outpatient Therapy Subjective History Subjective History This is the initial PT eval for Phuc Herbert, 38 yowm who presents with c/o decreased balance, increased dizziness, brain fog, blurry vision x ~ 6 yrs. He reports no known specific cause of his symptoms despite being seen by ENT, 2 neurologists, and cardiology. He has constant symptoms which are more intense some days than other, but never completely gone. He reports hx of multiple factors that could cause his symptoms including, but not limited to: hx of multiple concussions, hx of multiple severe ear infections as a child, 2-3 instances of whiplash, B inner ear reconstruction. He reports double vision in his right eye, but corrective lenses make him feel more off balance and nauseated. He was recently diagnosed with POTS after tilt-table test and has hx of anxiety. Pt reports he thinks his symptoms are related to PPPD. New diagnosis of cancer in past 12 No months? Chief Complaint Other Balance Eval Nystagmus Nystagmus Presence None Dynamic Gait Index Test Protocol Gait Level Surface Normal Query Text: Instructions: Walk at your normal speed from here to the next uday (20'). Grading: Uday the lowest category that applies. Change in Gait Speed Normal Query Text: Instructions: Begin walking at your normal pace (for 5'), when I tell you go , walk as fast as you can (for 5'). When I tell you slow , walk as slowly as you can (for 5'). Grading: Uday the lowest category that applies. Gait with Horizontal Head Turns Mild Impairment Query Text: Instructions: Begin walking at your normal pace. When I tell you to look right , keep walking straight, but turn you head to the right. Keep looking to the right unit I tell you look left , then keep walking straight and turn your head to the left. Keep your head to the left until I tell you look straight , then keep walking straight, but return you head to the center. Grading: Uday the lowest category that applies. Gait with Vertical Head Turns Mild Impairment Query Text: Instructions: Begin walking at your normal pace. When I tell you to look up , keep walking staight, but tip your head up. Keep looking up until I tell you to look down , then keep walking straight and tip your head down. Keep your head down until I tell you look straight , then keep walking straight, but return your head to the center. Grading: Uday the lowest category that applies. Gait and Pivot Turn Normal Query Text: Instructions: Begin walking at your normal pace. When I tell you turn and stop , turn as quickly as you can to face the opposite direction and stop. Grading: Uday the lowest category that applies. Step Over Obstacle Mild Impairment Query Text: Instructions: Begin walking at your normal speed. When you come to the shoebox, step over it, not around it and keep walking. Grading: Uday the lowest category that applies. Step Around Obstacles Normal Query Text: Instructions: Begin walking at normal speed. When you come to the first cone (about 6' away), walk around the right side of it. When you come to the second cone (6' past first cone), walk around it to the left. Grading: Uday the lowest category that applies. Steps Mild Impairment Query Text: Instructions: Walk up these stairs as you would at home. At the top, turn around and walk down. Grading: Uday the lowest category that applies. Scoring Dynamic Gait Index Score 20 Miscellaneous Dx PT Eval Objective Objective Occulomotor testing shows worsening symptoms with Dynamic Visual Acuity test, Head-Impulse test, and Cross- Cover pursuit test. R side is more symptomatic than left with all occulomotor tests. Outpatient Therapy Assessment Impairments Problems/Impairmments Impaired Balance,Impaired Self Care/Self Management Prognosis Rehab Potential Good Comment Skilled therapy is indicate to reduce pt instances of balance disruption and improve balance to return pt to PLOF. Clinical Impression Consistent with Diagnosis No Consistent with More likely UVH than POTS Short Term Goals Number of Weeks 2 Increase DGI Score Yes: Improve Self Care/Self Management Yes: Moderate dizziness with rapid eye movements Patient to be Ind w/ HEP Yes Fpc Goals Number of Weeks 4 Increase DGI Score Yes: Improve Self Care/Self Management Yes: Minimal dizziness with rapid eye movements Patient to be Ind w/ Advanced HEP Yes Outpatient Therapy Plan of Care Treatment Plan May Include Therapeutic Exercise Including Home Yes Exercise Program Manual Therapy Techniques Yes Therapeutic Activities to Return to Yes Previous Functional/Work Level Gait Training Yes ADL/Self Care Education Yes Eval/Re-Eval Yes Frequency Times per week 2 Duration Number of Weeks 4 Addendums This patient is a candidate for social No or vocational rehab? Patient/Guardian verbally acknowledges Yes understanding of treatment program and consents to further treatment? Patient/Guardian verbally acknowledges Yes understanding of diagnosis, prognosis and goals for treatment? Eval Complexity PT Charges 21763 - High Complexity Shoulder/Elbow Eval Shoulder Objective Measurements Elbow Objective Measurements PHYSICIAN CERTIFICATION: I certify the specified therapy services for Phuc Herbert are required, authorized, and reviewed every 30 days.
== END 2023-12-27 15:05 | disposition home or self-care (01) ==
LOC: PT 15:00
PROVIDERS: Visit Provider Specialist
DX: R42 Dizziness and giddiness (principal); G90.A Postural orthostatic tachycardia syndrome [POTS]
CPT/HCPCS: 97112; 97163

== ENCOUNTER 2024-01-17 16:02 | Outpatient (CLI) | payer BC, SELFPAY ==
--- NOTE | 2024-01-17 16:03 | MR_ITS ---
FINAL REPORT CLINICAL HISTORY: Headache, whiplash, chronic neck pain FINDINGS: Multiplanar MR imaging of the cervical spine was performed without contrast. There is motion on many of the images which decreases the sensitivity of the exam. On the sagittal T2-weighted images, disc degeneration is seen at multiple levels. There is no evidence of fracture. There is straightening of the normal cervical curvature which could be due to positioning or muscle spasm. The cervical spinal cord has an unremarkable appearance without evidence of mass, edema or syrinx. No significant canal stenosis is identified. The cervicomedullary junction is normal. C2-3: There is no significant canal stenosis or neural foraminal narrowing. C3-4: There is small uncovertebral osteophytes. There is mild left neuroforaminal narrowing. C4-5: There is no significant canal stenosis or neural foraminal narrowing. C5-6: There is a small disc osteophyte complex with mild bilateral neuroforaminal narrowing. C6-7: There is a small disc osteophyte complex with mild bilateral neuroforaminal narrowing. C7-T1: There is no significant canal stenosis or neural foraminal narrowing. IMPRESSION: Multilevel degenerative disc disease. Straightening of the normal cervical curvature which could be due to positioning or muscle spasm. Reviewed, Interpreted and Dictated by Matti Modi III, MD Transcribed by Luba Chatman Authenticated and [facility]
== END 2024-01-17 23:59 | disposition home or self-care (01) ==
LOC: RAD 16:03
PROVIDERS: PCP Nurse Practitioner Family; Visit Provider Nurse Practitioner Family
DX: R26.89 Other abnormalities of gait and mobility (principal); G90.A Postural orthostatic tachycardia syndrome [POTS]; R42 Dizziness and giddiness; H93.13 Tinnitus, bilateral
CPT/HCPCS: 72141

== ENCOUNTER 2024-01-31 14:01 | Outpatient (POV) | payer BC, SELFPAY ==
[2024-01-31 14:53] VITALS: BP 143/88; PULSE 81; RESP 18; O2SAT 99; BMI 26.4
--- NOTE | 2024-01-31 15:07 | A.OFFVIS_ITS ---
HPI Data of Consult Patient: new to practice Consult date: 01/31/24 Requesting Physician: Shantell Durbin APRN Primary Care Provider: Anni Clark APRN Consult Narrative Reason for consult: Neck pain, bilateral arm hand numbness tingling, headache, blurred vision, History of present illness: Mr. Herbert is a 38 year old male who presents today as a new patient. He is a referral from Mary Clark's office. Today he rates his pain a 0 out of 10 currently however does state that the pain and symptoms will hit all of a sudden going to at least a 5 out of 10 if not more. He states that the symptoms are very offputting and do affect his ability to perform activities of daily living such as cooking and cleaning or even simple ambulation. Patient states this has been going on for months and progressively worsening. Patient states he constantly feels off balance with frequent headaches and blurred vision. Joy ent states he ended up seeing a ENT specialist Dr. Mercedes who diagnosed him with vestibular delay. Patient states he then went to a neurologist there in [place] who did imaging of his brain and said there were no acute findings. He also did an EEG and spinal tap with no acute findings. Patient states that she did not have any suggestions of what to do and then he ended up being referred here to Dr. Richards. Patient states that he has gone to a clearing inspector to check his vision and that they did mention astigmatism in his right eye however stated that his vision overall was a 2020. He states that he can see but it takes time to focus he states that he did even try glasses for a full day and it made no additional improvement. Patient states that he has severe brain fog and that he has tried everything including oral medication, heat and ice, topicals, pillows for positioning, at home exercising and stretching for longer than 12 weeks. Patient states he feels like he is living in a dream . Patient states they just cannot figure out what is going on and that his mother stated she had similar symptoms and ended up getting a cervical injection and that it did significantly improve his symptoms. Patient does state that he is open to trying anything to get improvement. Patient does state that he did even see a TikTok that mentioned a certain type of issue and that he feels like that he has very similar symptoms. Patient is not on any scheduled medications. His Angelito has been reviewed and is appropriate. CC: Shantell Durbin APRN [facility] Disclaimer: The information contained in this section may have been updated after the patient was seen, as this information can be updated by other users. 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 Sinus tachycardia Tick bite Generalized anxiety disorder Depression with anxiety HTN (hypertension) Kidney stone Surgical History S/P middle ear reconstruction History of vocal cord polypectomy H/O vasectomy History of placement of ear tubes Family History Father No significant family history Mother Hypertension Hyperlipidemia Brother Hypertension Other Anxiety Coronary artery disease Depression Diabetes Stroke Social History Smoking Status: Former smoker second hand exposure: No alcohol intake: current alcohol intake frequency: holidays/special occasions only counseling given: No substance use type: denies use counseling given: No current occupational status: employed Travel in the last 8 weeks: None adopted: No caregiver/support person: No foster care: No household members: spouse housing: house lives independently: Yes marital status: number of children: 2 Hx Recent Travel: No sexually active: Yes working smoke detector in home: Yes fire extinguisher in home: Yes carbon monox detector in home: No firearms in home: Yes firearms unloaded and locked: Yes do you feel safe at home: Yes victim of physical abuse: No victim of emotional abuse: No victim of sexual abuse: No would you like helpful sources: No Review of Systems Review of Systems Review of systems:: pertinent systems reviewed and negative unless documented below Review of systems (narrative): Review of Systems: General: No recent weight changes, no fever, no sleep disturbances Respiratory: No cough, no shortness of air, no recurring pulmonary infections Cardiovascular/peripheral vascular: No chest pain, no palpitations, no edema, no shortness of breath Gastrointestinal: No new onset incontinence, normal bowel movements reported Genitourinary: No new onset incontinence Musculoskeletal: Neck pain, bilateral arm, and numbness tingling, blurred vision, headaches, off-balance sensation Psychiatric: [Normal mood/affect] Neurological: [Denies weakness in extremities], [denies balance issues] Meds Home Medications and Allergies Home Medications ?Medication ?Instructions ?Recorded ?Confirmed ?Type propranolol 20 mg tablet 20 mg PO BID #180 tabs 09/11/23 01/31/24 Rx sodium chloride 1,000 mg soluble 1,000 mg PO DAILY #90 tabs 09/11/23 01/31/24 Rx tablet buspirone 5 mg tablet 5 mg PO BID 01/03/24 01/31/24 History desvenlafaxine succinate 50 mg 50 mg PO DAILY 01/03/24 01/31/24 History tablet,extended release 24 hr hydroxyzine HCl 10 mg tablet 10 mg PO TID PRN Anxiety 01/03/24 01/31/24 History New Prescriptions to Start Prescriptions: Allergies Allergy/AdvReac Type Severity Reaction Status Date / Time Penicillins Allergy Verified 01/03/24 15:35 Objective Vital signs: Pulse Resp BP Pulse Ox O2 Del Method 81 18 143/88 H 99 Room Air 01/31/24 14:53 01/31/24 14:53 01/31/24 14:53 01/31/24 14:53 01/31/24 14:53 Narrative: Physical Exam: General: Alert and oriented x3, no acute distress, pleasant and cooperative Lungs: Respirations even and unlabored, symmetrical chest expansion Eyes: PERRL Musculoskeletal: Flexion and extension of cervical [spine] somewhat guarded secondary to pain, positive Spurling's test Neurological: Speech clear, no gross sensory deficit Additional findings Additional findings: FINDINGS: Multiplanar MR imaging of the cervical spine was performed without contrast. There is motion on many of the images which decreases the sensitivity of the exam. On the sagittal T2-weighted images, disc degeneration is seen at multiple levels. There is no evidence of fracture. There is straightening of the normal cervical curvature which could be due to positioning or muscle spasm. The cervical spinal cord has an unremarkable appearance without evidence of mass, edema or syrinx. No significant canal stenosis is identified. The cervicomedullary junction is normal. C2-3: There is no significant canal stenosis or neural foraminal narrowing. C3-4: There is small uncovertebral osteophytes. There is mild left neuroforaminal narrowing. C4-5: There is no significant canal stenosis or neural foraminal narrowing. C5-6: There is a small disc osteophyte complex with mild bilateral neuroforaminal narrowing. C6-7: There is a small disc osteophyte complex with mild bilateral neuroforaminal narrowing. C7-T1: There is no significant canal stenosis or neural foraminal narrowing. IMPRESSION: Multilevel degenerative disc disease. Straightening of the normal cervical curvature which could be due to positioning or muscle spasm. Reviewed, Interpreted and Dictated by Matti Modi III, MD Transcribed by Luba Chatman Authenticated and [facility] Assessment and Plan *Assessment and plan (1) Degenerative disc disease, cervical: Status: Acute Category: Medical Code(s): M50.30 - Other cervical disc degeneration, unspecified cervical region (2) Cervical radiculopathy: Status: Acute Category: Medical Code(s): M54.12 - Radiculopathy, cervical region (3) Headache: Status: Acute Category: Medical Code(s): R51.9 - Headache, unspecified (4) POTS (postural orthostatic tachycardia syndrome): Problem Comment: Baseline BP 127/74 HR 80 -----100/54 HR >100. Orthostatic hypotension tachycardia have improved but he still feels dizzy. Status: Suspected Category: Medical Code(s): G90.A - Postural orthostatic tachycardia syndrome [POTS] (5) Dizziness: Problem Comment: Can not exclude POTS Status: Chronic Category: Medical Code(s): R42 - Dizziness and giddiness Plan Patient has been experiencing significant issues including neck pain with numbness and tingling into his arms and fingertips for several months along with concerning symptoms of blurred vision, dizziness and general off-balance sensations. Patient was counseled that we can try cervical epidural steroid injection. Patient did have degenerative disc disease with mild bilateral neuroforaminal narrowing at the C5-C6 C6-C7 levels. I have discussed that I would recommend we try the C5-C6 level. Risk and benefits were discussed with the patient and he would like to proceed forward with this plan of care. Patient has tried and failed conservative treatment including continued at home stretching exercise for longer than 12 weeks. Patient will be scheduled for a JAVIER C5-C6 under fluoroscopy. Patient has been instructed to contact the clinic with any concerns before the next appointment. Dr. Batista has reviewed this note and agrees with this plan of care. This note was dictated using voice recognition software and make contain errors or omissions. All injections are used with Lidocaine or Bupivacaine and Depo Medrol.
== END 2024-01-31 23:59 | disposition home or self-care (01) ==
LOC: SC.PAIN 14:02
PROVIDERS: PCP Nurse Practitioner Family; Visit Provider Nurse Practitioner Family
DX: M50.10 Cervical disc disorder with radiculopathy, unspecified cervical region (principal); R51.9 Headache, unspecified; G90.A Postural orthostatic tachycardia syndrome [POTS]; R42 Dizziness and giddiness; Z73.89 Other problems related to life management difficulty; Z87.891 Personal history of nicotine dependence
CPT/HCPCS: 99202; G0463

== ENCOUNTER 2024-02-19 08:53 | Day surgery (SDC) | payer BC, SELFPAY ==
[2024-02-19 09:07] VITALS: BP 129/84; PULSE 66; RESP 16; TEMP 36.6; O2SAT 100; BMI 27.2
[2024-02-19 09:32] VITALS: BP 138/83; PULSE 75; RESP 18; O2SAT 96
[2024-02-19] MEDS: methylPREDNISolone ACETATE 80MG/ML VIAL 80 MG (09:32)
[2024-02-19 09:33] VITALS: BP 138/83; PULSE 69; RESP 18; O2SAT 96
[2024-02-19 09:37] VITALS: BP 123/80; PULSE 68; RESP 16; O2SAT 100
--- NOTE | 2024-02-19 09:42 | P.PCN_ITS ---
Procedure Date: 02/19/24 Time: 09:30 Anesthesiologist:: Rashawn Malik CRNA Complications:: None Pre-procedure Diagnosis:: Degenerative disc cervical spine multilevels. Cervical radiculopathy Post-procedure Diagnosis:: Same. Indications for Procedure:: Patient is a pleasant 38-year-old male who comes our clinic today for cervical epidural steroid injection. Patient describes cervical neck pain as constant, dull, aching. Also bilateral shoulder radicular symptoms. Also, reports headac hes often. He rates his pain 7/10. Procedure Details:: Procedure:Cervical epidural steroid injection Informed consent was obtained and the risks and benefits of the procedure were explained to the patient. The patient was taken to the procedure room and noninvasive monitors placed, including noninvasive blood pressure cuff and pulse oximeter. The neck was prepped using Chloraprep as a cleansing solution. The C6- C7 interspace was viewed using fluroscopy. The skin and subcutaneous tissues were anesthetized using lidocaine 1.5% and a 25-gauge needle. After this an 18- gauge Touhy epidural needle was placed into the C6-C7 interspace under fluroscopy guidance and advanced using loss of resistance to air until the epidural space was encountered. After confirmation of needle placement in the epidural space using contrast dye, a solution containing normal saline, 2 mL and Depo-Medrol 80 mg was incrementally injected into the cervical epidural space.~ The patient tolerated the procedure well with no complications. The patient was observed in the Pain Clinic and then discharged home neurologically intact. Plan and Disposition:: Patient was discharged without incident.
== END 2024-02-19 09:37 | disposition home or self-care (01) ==
LOC: SC.PAINP 08:53
PROVIDERS: PCP Nurse Practitioner Family; Visit Provider Nurse Anesthetist, Certified Registered
DX: M50.30 Other cervical disc degeneration, unspecified cervical region (principal); M54.12 Radiculopathy, cervical region
CPT/HCPCS: 62321; J1010

== ENCOUNTER 2024-02-21 17:56 | Emergency (ER) | payer BC, SELFPAY ==
[2024-02-21 18:23] VITALS: BP 128/89; PULSE 91; RESP 18; TEMP 36.8; O2SAT 98; BMI 26.4
--- NOTE | 2024-02-21 18:39 | EXP.UTC ---
Discharge Plan Disposition Patient Disposition: Home, Self-Care Prescriptions Prescriptions: New valacyclovir 1 gram tablet 1,000 mg PO Q8H 7 Days Qty: 21 0RF No Action desvenlafaxine succinate 50 mg tablet extended release 24 hr 50 mg PO DAILY Patient Comments: TAKE 1 TABLET BY MOUTH ONCE DAILY buspirone 5 mg tablet 5 mg PO BID Patient Comments: TAKE 1 TABLET BY MOUTH TWICE DAILY propranolol 20 mg tablet 20 mg PO BID Qty: 180 3RF Referrals Follow up/Referrals: Anni Clark APRN [Primary Care Provider] - See instructions Activity Restrictions/Add. Instructions Additional Instructions/Restrictions: Take medication as prescribed Take your medicines exactly as prescribed. Antiviral medicine helps you get better faster and may help prevent later problems. Try not to scratch or pick at the blisters.Keep the blisters moist until they heal over. One way to do this is to cover them with a thin layer of petroleum jelly, such as Vaseline, and a non-stick bandage. Take an [id number] pain medicine, such as acetaminophen (Tylenol), ibuprofen (Advil, Motrin), or naproxen (Aleve). .Avoid close contact with people until the blisters have healed. It is very important for you to avoid contact with anyone who has never had chickenpox or the chickenpox vaccine. Young babies and anyone who is or has a hard time fighting infection (such as someone with HIV, diabetes, or cancer) are especially at risk. To relieve itching and discomfort, try: A cool, wet compresses on the affected skin.?Soothing baths and lotions, such as colloidal oatmeal bath, starch baths, or calamine lotion Clinical Impressions Clinical Impression: Shingles Stand Alone Forms Stand Alone Forms: Work/School Release Instructions Patient Instructions: DI for Shingles, Valacyclovir Print Language Print Language: Greenlandic Discharge ED Provider: Vesna Tobin [facility] General Stated complaint: Blisters on back Mode of Arrival: Ambulatory Source of Information: Patient Time Seen by Provider: 02/21/24 18:39 Description of Symptoms (Recalled from Triage Doc. by RN): BLISTERS ON BACK AND LEGS HEENT Symptoms (Recalled from RN notes): No Resp Symptoms (Recalled from RN notes): No Skin Symptoms (Recalled from RN notes): Yes MS Symptoms (Recalled from RN notes): No Functional Status (Recalled from RN notes): WNL History of Present Illness Provider Complaint: Patient states that he was a little achy in his lower back a few days ago and felt like a burning sensation States that since then he has broken out in a rash on his lower back area that wraps around his side into his groin area worried he may have shingles Related Data Home Medications ?Medication ?Instructions ?Recorded ?Confirmed buspirone 5 mg tablet 5 mg PO BID 01/03/24 02/21/24 desvenlafaxine succinate 50 mg 50 mg PO DAILY 01/03/24 02/21/24 tablet,extended release 24 hr Previous Rx's ?Medication ?Instructions ?Recorded propranolol 20 mg tablet 20 mg PO BID #180 tabs 09/11/23 valacyclovir 1 gram tablet 1,000 mg PO Q8H 7 days #21 tabs 02/21/24 Allergies Allergy/AdvReac Type Severity Reaction Status Date / Time Penicillins Allergy Verified 01/03/24 15:35 Worker's Comp Is this a Worker's Comp case?: No [facility] Disclaimer: The information contained in this section may have been updated after the patient was seen, as this information can be updated by other users. 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 Sinus tachycardia Tick bite Generalized anxiety disorder Depression with anxiety HTN (hypertension) Kidney stone Surgical History S/P middle ear reconstruction History of vocal cord polypectomy H/O vasectomy History of placement of ear tubes Family History Father No significant family history Mother Hypertension Hyperlipidemia Brother Hypertension Other Anxiety Coronary artery disease Depression Diabetes Stroke Social History Smoking Status: Former smoker second hand exposure: No alcohol intake: current alcohol intake frequency: holidays/special occasions only counseling given: No substance use type: denies use counseling given: No current occupational status: employed Travel in the last 8 weeks: None adopted: No caregiver/support person: No foster care: No household members: spouse housing: house lives independently: Yes marital status: number of children: 2 Hx Recent Travel: No sexually active: Yes working smoke detector in home: Yes fire extinguisher in home: Yes carbon monox detector in home: No firearms in home: Yes firearms unloaded and locked: Yes do you feel safe at home: Yes victim of physical abuse: No victim of emotional abuse: No victim of sexual abuse: No would you like helpful sources: No ROS Obtained: Yes All systems reviewed & no additional complaints except as documented and Yes Systems reviewed as appropriate & no additional complaints except as documented Constitutional Constitutional: Reports system reviewed and no additional complaints, except as documented and Reports as per HPI Eyes Eyes: Reports system reviewed and no additional complaints, except as documented and Reports as per HPI ENT Ears, Nose, Mouth, and Throat: Reports system reviewed and no additional complaints, except as documented and Reports as per HPI Cardiovascular Cardiovascular: Reports system reviewed and no additional complaints, except as documented and Reports as per HPI Respiratory Respiratory: Reports system reviewed and no additional complaints, except as documented and Reports as per HPI Gastrointestinal Gastrointestingal: Reports system reviewed and no additional complaints, except as documented and as per HPI Integumentary/Breasts Skin/Breast: Reports system reviewed and no additional complaints, except as documented, Reports as per HPI and Reports rash (tender, blister like rash on back, side and groin) Physical Exam General General appearance: alert and in no apparent distress Respiratory Respiratory exam: Present normal lung sounds bilaterally; Absent respiratory distress or wheezes Cardiovascular Cardiovascular exam: Present regular rate, normal rhythm and normal heart sounds Neurological Exam Neurological exam: Present alert, oriented X3 and normal gait Skin Skin exam: Present rash (red raised, blister like rash on right lower back that extends around right side into right groin area appears like shingles) Medical Decision Making Medical Records Screening: Per USPSTF and CDC recommendations, given the prevalence of disease in our region, it is our hospital?s policy to screen for HIV and viral Hepatitis for all patients aged 18 and over and those with ongoing risk factors. Angelito Inquiry Pt receiving controlled substance: No Angelito was queried for this patient: No Vital Signs: 02/21/24 18:23 Temperature 98.2 F Temperature Source Oral Pulse Rate [Left Radial] 91 H Respiratory Rate 18 Blood Pressure [Left Arm] 128/89 Blood Pressure Mean [Left Arm] 102 02 Sat by Pulse Oximetry 98
[2024-02-21 19:04] VITALS: BP 128/89; PULSE 91; RESP 18; TEMP 36.8
== END 2024-02-21 19:05 | disposition home or self-care (01) ==
PROVIDERS: Emergency Provider Nurse Practitioner; PCP Nurse Practitioner Family
DX: B02.9 Zoster without complications (principal)
CPT/HCPCS: 99213; G0381

== ENCOUNTER 2024-03-12 10:52 | Outpatient (POV) | payer BC, SELFPAY ==
--- NOTE | 2024-03-12 11:02 | A.OFFVIS_ITS ---
[facility] Disclaimer: The information contained in this section may have been updated after the patient was seen, as this information can be updated by other users. 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 Sinus tachycardia Tick bite Generalized anxiety disorder Depression with anxiety HTN (hypertension) Kidney stone Surgical History S/P middle ear reconstruction History of vocal cord polypectomy H/O vasectomy History of placement of ear tubes Family History Father No significant family history Mother Hypertension Hyperlipidemia Brother Hypertension Other Anxiety Coronary artery disease Depression Diabetes Stroke Social History Smoking Status: Former smoker second hand exposure: No alcohol intake: current alcohol intake frequency: holidays/special occasions only counseling given: No substance use type: denies use counseling given: No current occupational status: employed Travel in the last 8 weeks: None adopted: No caregiver/support person: No foster care: No household members: spouse housing: house lives independently: Yes marital status: number of children: 2 Hx Recent Travel: No sexually active: Yes working smoke detector in home: Yes fire extinguisher in home: Yes carbon monox detector in home: No firearms in home: Yes firearms unloaded and locked: Yes do you feel safe at home: Yes victim of physical abuse: No victim of emotional abuse: No victim of sexual abuse: No would you like helpful sources: No PM Subjective & Objective Subjective Subjective:: Patient is a pleasant 38-year-old male who presents today for follow-up of cervical epidural steroid injection C6-C7 on 02/19/2024. Today he rates his pain a 0 out of 10. Patient states that the injection made no change to his overall symptoms. Patient is still experiencing the blurred vision and feeling like he is living in a dream. Patient does state that he did recently get shingles and that the injections did seem to help that go away faster. He states he only had the rash for a couple of days. Patient has continued to see multiple providers due to his symptoms. Patient states that he is thinking about possibly going to ENT just to see if they may have came across a similar scenario. His Angelito has been reviewed and is appropriate. Review of Systems: General: No recent weight changes, no fever, no sleep disturbances Respiratory: No cough, no shortness of air, no recurring pulmonary infections Cardiovascular/peripheral vascular: No chest pain, no palpitations, no edema, no shortness of breath Gastrointestinal: No new onset incontinence, normal bowel movements reported Genitourinary: No new onset incontinence Musculoskeletal: Neck pain, blurred vision Psychiatric: [Normal mood/affect] Neurological: [Denies weakness in extremities], [denies balance issues] Pain at rest (0-10 scale): 0 Objective Objective:: Physical Exam: General: Alert and oriented x3, no acute distress, pleasant and cooperative Lungs: Respirations even and unlabored, symmetrical chest expansion Eyes: PERRL Musculoskeletal: Flexion and extension of cervical spine within normal limits Neurological: Speech clear, no gross sensory deficit Has patient had previous pain injection?: Yes Percent improvement in pain since last injection: Minimal Conservative treatment options previously tried: Home exercise plan Length of treatment: Longer than 12 weeks Meds Home Medications and Allergies Home Medications ?Medication ?Instructions ?Recorded ?Confirmed ?Type propranolol 20 mg tablet 20 mg PO BID #180 tabs 09/11/23 02/21/24 Rx desvenlafaxine succinate 50 mg 50 mg PO DAILY 01/03/24 02/21/24 History tablet,extended release 24 hr valacyclovir 1 gram tablet 1,000 mg PO Q8H 7 days #21 tabs 02/21/24 Rx buspirone 5 mg tablet 5 mg PO BID #180 tabs 03/11/24 Rx New Prescriptions to Start Prescriptions: Allergies Allergy/AdvReac Type Severity Reaction Status Date / Time Penicillins Allergy Verified 01/03/24 15:35 Assessment and Plan *Assessment and plan (1) Degenerative disc disease, cervical: Status: Acute Category: Medical Code(s): M50.30 - Other cervical disc degeneration, unspecified cervical region (2) Cervical radiculopathy: Status: Acute Category: Medical Code(s): M54.12 - Radiculopathy, cervical region Plan Patient did not notice any significant changes to his irregular symptoms of the blurred vision and feeling like he is in it during. I did discuss with the patient that I do believe going to ENT is a very good option. They do typically see a lot more extensive type cases and may have came across similar symptoms from other patients. I did assistant counsel him that I will not give him a specific follow-up appointment and that I will just let him call us for his next appointment. Patient agrees with this plan of care. Patient has been instructed to contact the clinic with any concerns before the next appointment. Dr. Batista has reviewed this note and agrees with this plan of care. This note was dictated using voice recognition software and make contain errors or omissions. All injections are used with Lidocaine or Bupivacaine and Depo Medrol.
[2024-03-12 11:28] VITALS: BP 133/83; PULSE 64; RESP 18; O2SAT 99
== END 2024-03-12 23:59 | disposition home or self-care (01) ==
LOC: SC.PAIN 10:53
PROVIDERS: PCP Nurse Practitioner Family; Visit Provider Nurse Practitioner Family
DX: M50.10 Cervical disc disorder with radiculopathy, unspecified cervical region (principal); Z87.891 Personal history of nicotine dependence
CPT/HCPCS: 99212; G0463